=== PATIENT | female | born 1980 | race Hispanic/Latino ===

== ENCOUNTER → 2020-10-10 | Outpatient (CLI) | payer OTHER, MEDICARE | END | disposition home or self-care (01) | LOC: SHCH 11:40 | PROVIDERS: ATTEND Internal Medicine Cardiovascular Disease | DX: R07.9 Chest pain, unspecified (principal) | CPT/HCPCS: 93306; 93356 ==

== ENCOUNTER 2022-01-05 06:38 | Day surgery (SDC) | payer OTHER, MEDICARE ==
[2022-01-02 09:58] LABS: BASOPHILS % (AUTO) 0.4 % (0.0-5.0); EOSINOPHILS % (AUTO) 2.1 % (0.0-8.0); HEMATOCRIT 32.8 % (36-48); LYMPHOCYTES % (AUTO) 27.2 % (21.0-51.0); MEAN CORPUSCULAR HEMOGLOBIN 23.5 pg (27.0-33.0); MEAN CORPUSCULAR HGB CONC 29.3 g/dL (32.0-36.0); MEAN CORPUSCULAR VOLUME 80.2 fL (79-99); MONOCYTES % (AUTO) 7.2 % (3.0-13.0); NEUTROPHILS % (AUTO) 63.1 % (40.0-77.0); PLATELET COUNT (AUTO) 241 K/uL (130-400); RED BLOOD CELL COUNT(AUTO) 4.09 MIL/uL (4.00-5.50); RED CELL DISTRIBUTION WIDTH 17.1 % (11.0-15.5); WHITE BLOOD COUNT (AUTO) 6.8 K/uL (4.8-10.8)
[2022-01-02 10:06] LABS: CREATININE 0.9 mg/dL (0.5-1.5); POTASSIUM 4.3 mmol/L (3.5-5.1)
[2022-01-02 12:38] VITALS: BP 148/65
[2022-01-05] VITALS (18 sets, daily range): BP systolic 122–173; BP diastolic 50–84
[~2022-01-05] VITALS: Ht 175.3 cm; Wt 144.2 kg
[~2022-01-05 06:38] MED LIST: CARV3.12 PO; CEFAZOLIN SODIUM 3 GM VIAL IV SCH; CYCL-309 PO; DULO60CA64 PO; GABA300C PO; LOSA1TAB42 PO; ROPI0.5T7 PO
[2022-01-05] MEDS ORDERED: LACTATED RINGERS 1000ML 1,000 ML IV ONE (06:48)
[2022-01-05] MEDS ORDERED: CEFAZOLIN SODIUM 1 GM VIAL ONE ×2 (06:48→09:16)
[2022-01-05] MEDS ORDERED: BUPIVACAINE/PF 0.5% 30ML VIAL ONE (08:14)
[2022-01-05] MEDS ORDERED: FENTANYL CITRATE PF 50 MCG/1 ML 2ML VIAL ONE ×2 (08:39→09:35)
[2022-01-05] MEDS ORDERED: MIDAZOLAM HCL 1 MG/ML 2ML VIAL ONE ×3 (08:39→09:18)
[2022-01-05] MEDS ORDERED: ROPIVACAINE 0.5% 5MG/ML 30ML IJ ONE (08:41)
[2022-01-05] MEDS ORDERED: LIDOCAINE 2%-EPI 1:200,000 20 ML VIAL IJ ONE (08:43)
[2022-01-05] MEDS ORDERED: CEFAZOLIN SODIUM 2 GM VIAL IV ONE (08:44)
[2022-01-05] MEDS ORDERED: CEFAZOLIN SODIUM 3 GM VIAL IV ONE (08:44)
[2022-01-05] MEDS ORDERED: LIDOCAINE HCL 1% MDV 50ML VIAL ONE (09:12)
[2022-01-05] MEDS ORDERED: LIDOCAINE HCL 1% 20 ML VIAL INJ ONE (09:19)
[2022-01-05] MEDS ORDERED: CEPH500B PO (09:56)
[2022-01-05] MEDS ORDERED: ACET-2079 PO (09:56)
[2022-01-05] MEDS ORDERED: IBUP-2077 PO (09:56)
== END 2022-01-05 11:35 | disposition home or self-care (01) ==
LOC: DAH 06:38
PROVIDERS: ATTEND Orthopaedic Surgery
DX: G56.03 Carpal tunnel syndrome, bilateral upper limbs (principal); R20.2 Paresthesia of skin; I48.0 Paroxysmal atrial fibrillation; E03.9 Hypothyroidism, unspecified; F32.A Depression, unspecified; I13.0 Hypertensive heart and chronic kidney disease with heart failure and stage 1 through stage 4 chronic kidney disease, or unspecified chronic kidney disease; N18.4 Chronic kidney disease, stage 4 (severe); I50.22 Chronic systolic (congestive) heart failure; Z90.49 Acquired absence of other specified parts of digestive tract; Z98.84 Bariatric surgery status; Z83.3 Family history of diabetes mellitus; Z82.49 Family history of ischemic heart disease and other diseases of the circulatory system
CPT/HCPCS: 36415 ×2; 64415; 64721; 76942; 80048; 84703; 85025; 87635; A4215 ×2; A4216; A4221; A4222; A4223 ×3; A4606; A4649; A4663; A4930; A5120; A6223; C9803; J0690 ×3; J2250 ×3; J2795; J3010 ×2; J3490 ×2; J7030; J7120

== ENCOUNTER 2022-02-12 06:24 | Day surgery (SDC) | payer OTHER, MEDICARE ==
[2022-02-10 14:05] VITALS: BP 114/53
[2022-02-10 14:21] LABS: BASOPHILS % (AUTO) 0.3 % (0.0-5.0); EOSINOPHILS % (AUTO) 1.2 % (0.0-8.0); HEMATOCRIT 33.5 % (36-48); LYMPHOCYTES % (AUTO) 30.9 % (21.0-51.0); MEAN CORPUSCULAR HEMOGLOBIN 24.3 pg (27.0-33.0); MEAN CORPUSCULAR HGB CONC 30.4 g/dL (32.0-36.0); MEAN CORPUSCULAR VOLUME 79.8 fL (79-99); MONOCYTES % (AUTO) 8.2 % (3.0-13.0); NEUTROPHILS % (AUTO) 59.2 % (40.0-77.0); PLATELET COUNT (AUTO) 234 K/uL (130-400); WHITE BLOOD COUNT (AUTO) 6.5 K/uL (4.8-10.8)
[2022-02-10 14:33] LABS: POTASSIUM 4.4 mmol/L (3.5-5.1)
[~2022-02-12] VITALS: Ht 175.3 cm; Wt 143.2 kg
[2022-02-12] VITALS (16 sets, daily range): BP systolic 123–170; BP diastolic 59–85
[~2022-02-12 06:24] MED LIST changes: -CEFAZOLIN SODIUM 3 GM VIAL IV SCH
[2022-02-12] MEDS ORDERED: LACTATED RINGERS 1000ML 1,000 ML IV ONE (06:58)
[2022-02-12] MEDS ORDERED: CEFAZOLIN SODIUM 1 GM VIAL ONE (06:58)
[2022-02-12] MEDS ORDERED: LIDOCAINE PF 100MG/5ML (2%) SYRINGE 5ML ONE (07:41)
[2022-02-12] MEDS ORDERED: MIDAZOLAM HCL 1 MG/ML 2ML VIAL ONE (07:41)
[2022-02-12] MEDS ORDERED: ROCURONIUM 10MG/1ML SYR 10 MG/ML ML ONE (07:42)
[2022-02-12] MEDS ORDERED: ONDANSETRON 4MG INJ ONE (07:42)
[2022-02-12] MEDS ORDERED: FENTANYL CITRATE PF 50 MCG/1 ML 2ML VIAL ONE ×2 (07:42→09:35)
[2022-02-12] MEDS ORDERED: PROPOFOL 10 MG/ML 20ML VIAL IV ONE (07:42)
[2022-02-12] MEDS ORDERED: CEFAZOLIN SODIUM 3 GM in DEXTROSE 5%-WATER 100 ML IVP SCH (08:00)
[2022-02-12] MEDS ORDERED: CEFAZOLIN SODIUM 3 GM VIAL IV ONE (08:22)
[2022-02-12] MEDS ORDERED: BUPIVACAINE/PF 0.25% 30ML VIAL IJ ONE ×2 (08:39→09:02)
[2022-02-12] MEDS ORDERED: EPHEDRINE SULFATE 50 MG/ML AMPULE ONE (08:51)
[2022-02-12] MEDS ORDERED: MEPERIDINE-PF 25 MG/ML SYG ONE ×3 (09:00→10:10)
[2022-02-12] MEDS ORDERED: GLYCOPYRROLATE 1 MG/5 ML SYRINGE ONE (09:17)
[2022-02-12] MEDS ORDERED: ACET-2079 PO (09:32)
[2022-02-12] MEDS ORDERED: CEPH500B PO (09:32)
[2022-02-12] MEDS ORDERED: PHENYLEPHRINE HCL 10 MG/ML 1ML VIAL IV ONE ×2 (09:34→09:36)
== END 2022-02-12 11:45 | disposition home or self-care (01) ==
LOC: DAH 06:24
PROVIDERS: ATTEND Orthopaedic Surgery
DX: G56.01 Carpal tunnel syndrome, right upper limb (principal); J45.909 Unspecified asthma, uncomplicated; E66.01 Morbid (severe) obesity due to excess calories; E03.9 Hypothyroidism, unspecified; F32.A Depression, unspecified; I48.0 Paroxysmal atrial fibrillation; Z98.84 Bariatric surgery status; Z90.49 Acquired absence of other specified parts of digestive tract; Z79.899 Other long term (current) drug therapy; Z68.42 Body mass index [BMI] 45.0-49.9, adult
CPT/HCPCS: 36415; 64721; 80048; 84703; 85025; 87635; A4215 ×2; A4221; A4222; A4223; A4649; A4663; A4930; A5120; A6223; C9803; J0690 ×3; J2001; J2175 ×3; J2250; J2370 ×2; J2405; J2704; J3010 ×2; J3490 ×4; J7060; J7120 ×2

== ENCOUNTER → 2023-04-19 | Outpatient (CLI) | payer OTHER, MEDICARE ==
[~2023-04-19] MED LIST changes: +ACET-2079 PO; +CEPH500B PO; +ROPI0.5T37 PO; -ROPI0.5T7 PO
== END | disposition home or self-care (01) ==
LOC: SHCH 14:32
PROVIDERS: ATTEND Internal Medicine Cardiovascular Disease
DX: I87.2 Venous insufficiency (chronic) (peripheral) (principal); Z98.890 Other specified postprocedural states
CPT/HCPCS: 93971

== ENCOUNTER → 2023-04-27 | Outpatient (CLI) | payer OTHER, MEDICARE | END | disposition home or self-care (01) | LOC: SHCH 13:04 | PROVIDERS: ATTEND Internal Medicine Cardiovascular Disease | DX: I87.2 Venous insufficiency (chronic) (peripheral) (principal); Z98.890 Other specified postprocedural states | CPT/HCPCS: 93971 ==

== ENCOUNTER → 2024-03-22 | Outpatient (CLI) | payer OTHER, MEDICARE | END | disposition home or self-care (01) | LOC: SHCH 08:16 | PROVIDERS: ATTEND Internal Medicine Cardiovascular Disease | DX: I87.2 Venous insufficiency (chronic) (peripheral) (principal); I73.9 Peripheral vascular disease, unspecified; I87.1 Compression of vein; Z79.899 Other long term (current) drug therapy; E66.01 Morbid (severe) obesity due to excess calories; Z68.42 Body mass index [BMI] 45.0-49.9, adult; M79.89 Other specified soft tissue disorders | CPT/HCPCS: 93970 ==

== ENCOUNTER → 2024-09-11 | Outpatient (CLI) | payer OTHER, MEDICARE ==
[~2024-09-11] MED LIST changes: +ATOR20TA65 PO; -CARV3.12 PO; -CEPH500B PO; -CYCL-309 PO; +FAMO40TA7 PO; +FURO40TA5 PO; +HYDR-3421 PO; +LINA145C PO; +LURA80TA4 PO; +METF-444 PO; +PANT40TA54 PO; +SEMA1PEN3 SQ; +TRAZ-187 PO
--- NOTE | 2024-09-13 07:28 | HMCSR ---
APPROVED REPORT Right Lower Extremity Venous Study for DVT. Indications z09; s/p Varithena Right SSV 09/08/2024 Vein Imaging CFV (R): Normal flow, augmentation and compression. No evidence of DVT. SFJ (R): Normal flow, augmentation and compression. No evidence of DVT. FEM (R): Normal flow, augmentation and compression. No evidence of DVT. POP (R): Partially Compressible, Normal augmentation, Recanalized fow. DFV (R): Normal flow, augmentation and compression. No evidence of DVT. PTV (R): Normal flow, augmentation and compression. No evidence of DVT. Peroneals (R): Normal flow, augmentation and compression. No evidence of DVT. Technologist Impression Right Popliteal vein demonstrates partially compressible, normal augmentation with recanalized fow. Right SSV is closed from junction to distal calf. Conclusion Successful closure of right smaller saphenous vein No DVT Conclusion Successful closure of right smaller saphenous vein No DVT
== END | disposition home or self-care (01) ==
LOC: SHCH 09:17
PROVIDERS: ATTEND Internal Medicine Cardiovascular Disease
DX: I87.2 Venous insufficiency (chronic) (peripheral) (principal); I87.1 Compression of vein; Z09 Encounter for follow-up examination after completed treatment for conditions other than malignant neoplasm
CPT/HCPCS: 93971

== ENCOUNTER → 2024-10-23 | Outpatient (CLI) | payer OTHER, MEDICARE ==
--- NOTE | 2024-10-25 08:40 | HMCSR ---
APPROVED REPORT Bilateral Lower Extremity Venous Study for DVT., Venous Competence. Indications compression of vein f/u RT. POP V DVT Vein Imaging CFV (R): Normal flow, augmentation and compression. No evidence of DVT. 12.3mm 722ms of reflux. SFJ (R): Normal flow, augmentation and compression. No evidence of DVT. FEM (R): Normal flow, augmentation and compression. No evidence of DVT. POP (R): Normal flow, augmentation and compression. No evidence of DVT. DFV (R): Normal flow, augmentation and compression. No evidence of DVT. PTV (R): Normal flow, augmentation and compression. No evidence of DVT. Peroneals (R): Normal flow, augmentation and compression. No evidence of DVT.CFV (L): Normal flow, a ugmentation and compression. No evidence of DVT. 14.0mm 483ms of reflux. SFJ (L): Normal flow, augmentation and compression. No evidence of DVT. FEM (L): Normal flow, augmentation and compression. No evidence of DVT. POP (L): Normal flow, augmentation and compression. No evidence of DVT. DFV (L): Normal flow, augmentation and compression. No evidence of DVT. PTV (L): Normal flow, augmentation and compression. No evidence of DVT. Peroneals (L): Normal flow, augmentation and compression. No evidence of DVT. Technologist Impression Rt. Pop V. demonstrates partially compressible, normal augmentation with recanalized flow. No significant deep vein reflux seen. No superficial venous insufficiency seen. Bilateral Banks's cyst seen RGSV Junction 4.7mm 233ms thigh 2.8mm 0.0ms knee 1.5mm 0.0ms calf (Not seen) RSSV Prox ( Closed) Mid (Closed) LGSV Junction 6.0mm 0.0ms thigh (Not seen) knee 1.2mm 0.0ms calf (Not seen) LSSV Prox 2.5mm 0.0ms Mid 1.1ms 0.0ms Technically difficult study Conclusion Moderate deep venous reflux noted No superficial venous reflux No DVT Clinical correlation recommended Conclusion Moderate deep venous reflux noted No superficial venous reflux No DVT Clinical correlation recommended
== END | disposition home or self-care (01) ==
LOC: SHCH 13:28
PROVIDERS: ATTEND Internal Medicine Cardiovascular Disease
DX: I87.1 Compression of vein (principal); I87.2 Venous insufficiency (chronic) (peripheral); M71.22 Synovial cyst of popliteal space [Baker], left knee; M71.21 Synovial cyst of popliteal space [Baker], right knee
CPT/HCPCS: 93970